=== PATIENT | female | born 1980 | race Caucasian/White ===

== ENCOUNTER 2018-06-16 16:07 | Emergency (ER) | END 2018-06-16 17:26 | disposition home or self-care (01) ==

== ENCOUNTER 2019-02-11 11:44 | Emergency (ER) | payer OTHER ==
[~2019-02-11] VITALS: Ht 165.1 cm; Wt 54.5 kg
[~2019-02-11 11:44] MED LIST: NAPR-985 PO
[2019-02-11 11:49] VITALS: BP 129/60; PULSE 76; RESP 18; Ht 165.1 cm; Wt 54.5 kg
[2019-02-11] MEDS ORDERED: NITR-58 PO (13:33)
--- NOTE | 2019-02-11 13:40 | ERD ---
ER Documentation Chief Complaint Chief Complaint PT with urinary burning and frequency since yesterday, no fever HPI Patient is a 38-year-old female no past medical history presents the ER for concerns of suprapubic pain, urinary frequency and dysuria times 2 days. Patient denies any fevers or chills. Patient states she has pain in her vaginal region. Patient reports white discharge. Patient denies any vaginal bleeding. Patient states her last menstrual l period was on 02-01-19. ROS All systems reviewed and are negative except as per history of present illness. Medications Home Meds Active Scripts Nitrofurantoin Monohyd Macrocr* (Macrobid*) 100 Mg Capsr, 100 MG PO BID for 5 Days, CAP Prov:ZOILA ZIMMERMAN PA-C 02/11/19 Naproxen* (Naprosyn*) 500 Mg Tablet, 500 MG PO BID PRN for PAIN AND/OR INFLAMMATION, #30 TAB Prov:ZOILA ZIMMERMAN PA-C 06/16/18 Allergies Allergies: Coded Allergies: No Known Allergy (Unverified , 02/11/19) PMhx/Soc Hx Alcohol Use: No Hx Substance Use: No Hx Tobacco Use: No Smoking Status: Never smoker FmHx Family History: No diabetes Physical Exam Vitals Vital Signs Date Temp Pulse Resp B/P (MAP) Pulse Ox O2 O2 Flow FiO2 Time Delivery Rate 02/11/19 99.5 76 18 129/60 100 11:49 (83) Physical Exam GENERAL: Well-developed, well-nourished female. Appears in no acute distress. HEAD: Normocephalic, atraumatic. EYES: Pupils are equally reactive bilaterally. EOMs grossly intact. No conjunctival erythema. ENT: Moist mucous membranes. No uvula deviation. No kissing tonsils. NECK: Supple. No meningismus. Normal range of motion of the neck. LUNG: Clear to auscultation bilaterally. No rhonchi, wheezing, rales or coarse breath sounds. HEART: Regular rate and rhythm. No murmurs, rubs or gallops. FEMALE GENITALIA: Exam was completed with a supervisor phosphatic fertilizer present. Normal external female genitalia. Normal vaginal mucosal without lesions. Cervix visualized, normal in appearance without any erythema. Clear discharge noted with white speaks. Normal sized uterus with no adnexal fullness or cervical motion tenderness. EXTREMITIES: Equal pulses bilaterally. No peripheral clubbing, cyanosis or edema. No unilateral leg swelling. NEUROLOGIC: Alert and oriented. Moving all four extremities without any difficulty. Normal speech. Steady gait. SKIN: Normal color. Warm and dry. No rashes or lesions. Results 24 hrs Laboratory Tests Test 02/11/19 12:50 02/11/19 12:54 POC Beta HCG, Qualitative NEGATIVE Bedside Urine pH (LAB) 5.5 Bedside Urine Protein (LAB) Negative Bedside Urine Glucose (UA) Negative Bedside Urine Ketones (LAB) Negative Bedside Urine Blood 3+ Bedside Urine Nitrite (LAB) Negative Bedside Urine Leukocyte Esterase (L 2+ Procedures/MDM MEDICAL DECISION MAKING: This is a 38-year-old female presents the ER for concerns of dysuria, frequency and suprapubic pain as well as vaginal discharge x 2 days. Vital signs were reviewed. Patient was afebrile. UA did show 2+ leukocyte esterase, 3+ blood. Urine gonorrhea and occult chlamydia culture sent and pending. Wet mount did show positive bacteria however no clue cells or trichomonas noted. No yeast noted. Urine was negative. At this time, patient presentation is most consistent with UTI and vaginal discharge. Low for pyelonephritis, nephrolithiasis, appendicitis, epididymitis, testicular torsion, ectopic , PID, ovarian torsion, or tubo-ovarian abscess. Patient was encouraged to follow-up with [facility]. PRESCRIPTIONS: Macrobid DISCHARGE: At this time, patient is stable for discharge and outpatient management. I have instructed the patient to follow-up with his/her primary care physician in 1-2 days. Patient should repeat UA in 2 weeks to check for resolution of urinary tract infection. If symptoms persist, patient may need to see a specialist for further examinations and testing. I have instructed the patient to promptly return to the ER at any time for any new or worsening symptoms including increased pain, fever, nausea, vomiting, urinary changes or weakness. The patient and/or family expressed understanding of and agreement with this plan. All questions were answered. Home care instructions were provided. Disclaimer: Inadvertent spelling and grammatical errors are likely due to EHR/dictation software use and do not reflect on the overall quality of patient care. Also, please note that the electronic time recorded on this note does not necessarily reflect the actual time of the patient encounter. Departure Diagnosis: Primary Impression: UTI (urinary tract infection) Urinary tract infection type: site unspecified Hematuria presence: with hematuria Qualified Codes: N39.0 - Urinary tract infection, site not specified; R31.9 - Hematuria, unspecified Additional Impression: Vaginal discharge Condition: Fair Patient Instructions: Understanding Urinary Tract Infections (UTIs) Referrals: [facility] YOU HAVE RECEIVED A MEDICAL SCREENING EXAM AND THE RESULTS INDICATE THAT YOU DO NOT HAVE A CONDITION THAT REQUIRES URGENT TREATMENT IN THE EMERGENCY DEPARTMENT. FURTHER EVALUATION AND TREATMENT OF YOUR CONDITION CAN WAIT UNTIL YOU ARE SEEN IN YOUR DOCTORS OFFICE WITHIN THE NEXT 1-2 DAYS. IT IS YOUR RESPONSIBILITY TO MAKE AN APPOINTMENT FOR FOLOW-UP CARE. IF YOU HAVE A PRIMARY DOCTOR --you should call your primary doctor and schedule an appointment IF YOU DO NOT HAVE A PRIMARY DOCTOR YOU CAN CALL OUR PHYSICIAN REFERRAL HOTLINE AT IF YOU CAN NOT AFFORD TO SEE A PHYSICIAN YOU CAN CHOSE FROM THE FOLLOWING [facility] [address] [facility] [address] [facility] [address] [facility] [address] [facility] [address] [facility]. [facility] [address] [facility]. [facility] YOU HAVE RECEIVED A MEDICAL SCREENING EXAM AND THE RESULTS INDICATE THAT YOU DO NOT HAVE A CONDITION THAT REQUIRES URGENT TREATMENT IN THE EMERGENCY DEPARTMENT. FURTHER EVALUATION AND TREATMENT OF YOUR CONDITION CAN WAIT UNTIL YOU ARE SEEN IN YOUR DOCTORS OFFICE WITHIN THE NEXT 1-2 DAYS. IT IS YOUR RESPONSIBILITY TO MAKE AN APPOINTMENT FOR FOLOW-UP CARE. IF YOU HAVE A PRIMARY DOCTOR --you should call your primary doctor and schedule and appointment IF YOU DO NOT HAVE A PRIMARY DOCTOR YOU CAN CALL OUR PHYSICIAN REFERRAL HOTLINE AT . IF YOU CAN NOT AFFORD TO SEE A PHYSICIAN YOU CAN CHOSE FROM THE FOLLOWING [facility] INSTITUTIONS: [facility] [address] [place] [address] [facility] [address] [place] [address] [facility] [address] [place] [address] [facility] [address] [facility] [address] [place] [address] OFFICE FAX , [place] [address] [place] [address] [address] MEDINA, [place] [address] [place] [address] [address] NELSON, [facility] [address], [address], [facility] [address] [address] [facility] [address] [place] [address] [facility] [address] [place] [address] [facility] [address] - [address] GAYTAN, [place] [address], [facility] [address] [address] CHAUDHARY, [place] [address] [facility], [place] [address] [address] MATTSON, [place] [address] [place], [place] [id number] Additional Instructions: Llame al doctor/ OBGYN MAANA y shanta luli STAN PARA DENTRO DE 1-2 LUDWIG.Dgale a la secretaria que nosotros le instruimos hacer esta stan.Avise o llame si herrera condicin se empeora antes de la stan. Regresa aqui si peor o no mejor. ZOILA ZIMMERMAN PA-C Feb 11, 2019 13:40
== END 2019-02-11 13:49 | disposition home or self-care (01) ==
LOC: FTE 11:44
DX: N39.0 Urinary tract infection, site not specified (principal); N89.8 Other specified noninflammatory disorders of vagina
CPT/HCPCS: 81003; 81025; 87210; 87591; Z7502; 99284